=== PATIENT | female | born 1955 | race Caucasian/White ===

== ENCOUNTER 2017-01-24 13:00 | Outpatient (CLI) | payer OTHER ==
[2017-01-24 14:22] LABS: INR-International Normal Ratio 0.9; PTT 30.1 SEC (22.9-36.1); Prothrombin Time 12.1 SEC (12.0-14.7)
[2017-01-24 14:30] LABS: Anion Gap 14 mmol/L (10-20); BUN (Urea Nitrogen) 9 mg/dL (9.8-20.1); Calc. Creatinine Clearance 0 mL/min (70-130); Calcium 9.9 mg/dL (7.8-10.44); Carbon Dioxide 30 mmol/L (23-31); Chloride 100 mmol/L (98-107); Estimated GFR-MDRD 76; Glucose 107 mg/dL (80-115); Potassium 3.5 mmol/L (3.5-5.1)
[2017-01-24 14:47] LABS: Bilirubin Negative (Negative); Blood, Urine Trace (Negative); Clarity Clear (Clear); Glucose, Urine (Dipstick) Negative (Negative); Leukocyte Negative (Negative); Nitrite Negative (Negative); Protein, Urine (Dipstick) Negative (Neg-Trace); RBC/HPF 0-3 HPF (0-3); Specific Gravity, Urine 1.006 (1.002-1.036); Urobilinogen 0.2 mg/dL (0.2-1.0)
[2017-01-24 14:49] LABS: Bacteria/HPF Rare-Few HPF (None Seen); WBC/HPF None Seen HPF (0-3)
[2017-01-24 14:58] LABS: Sodium 140 mmol/L (136-145)
--- NOTE | 2017-01-24 16:28 | ULT ---
BILATERAL RENAL ULTRASOUND: Date: 01/24/17 HISTORY: Diabetes, chronic renal disease, hematuria. FINDINGS: The right kidney measures 10.2 cm in length and the left kidney measures 9.1 cm in length. No focal mass or hydronephrosis is seen on either side. Cortical echogenicity and thickness is normal. The ur inary bladder is grossly unremarkable with a pre-void volume of 189 mL and a post-void residual of 2 mL. No shadowing renal calculi seen. IMPRESSION: Unremarkable exam. POS: [facility]
[2017-01-24 22:51] LABS: Creatinine, Urine 35.7 mg/dL (47-110)
== END 2017-01-24 13:01 | disposition home or self-care (01) ==
LOC: MADLAB 13:00
PROVIDERS: ATTEND Internal Medicine Nephrology
DX: N18.3 Chronic kidney disease, stage 3 (moderate) (principal)
CPT/HCPCS: 36415; 76770; 80048; 81001; 82570; 84156; 85610; 85730